=== PATIENT | male | born 1960 | race Caucasian/White ===

== ENCOUNTER 2023-12-10 20:38 | Emergency (ER) | payer OTHER, SELFPAY ==
[2023-12-10 20:48] VITALS: BP 120/75
--- NOTE | 2023-12-10 23:39 | ED.GENMED ---
History of Present Illness
<KAPIL Magallon - Last Filed: 12/11/23 00:39>
General
Chief Complaint: Male Genito-Urinary Symptoms
Source: patient
Exam Limitations: none
Time Seen by Provider: 12/10/23 23:38
Nursing documentation reviewed up to this point in time: agreed with
Travel History
Have you had any contact with someone who has COVID-19?: No
Do you have any symptoms of coronavirus? Fever > 100 degrees, chills, cough, shortness of breath, sore throat, loss of taste or smell, muscle aches, or headache?: No
History of Present Illness
History of Present Illness:
This is a 63 YOM with PMHx of prostatectomy on 12/06/[address] Coats presenting with partially displaced najera catheter, leaking urine and blood. Pt had sx without complication and was d/c 12/08/23 with instructions to shower after every
bowel movement. Pt noted he had first BM after sx on 12/10/23 and subsequently had 5 BM yesterday. He showered after every BM as instructed, but noted that during 5th shower, he had bleeding and leaking urine from the najera. Pt has been wearing small
najera bag on L thigh with straps because he has diff with dexterity changing back and forth with larger bag. Pt also complained of moderate burning pain at the penile head/urethral meatus. Pt did try to reinsert the najera catheter and was partly
successful, but noted sharp pain with this. Pt had bladder US in triage and small volume urine found with no obvious signs of trauma. Pt emptied najera bag while in triage, currently no henrik hematuria in najera bag. PE significant for nonerythematous
penile head/urethral meatus, no henrik blood from urethral meatus. Pt denied fevers, SELLERS, dizziness, vision changes, SOB, chest pain, N/V/C, abd pain, MSK weakness, sensory deficits, pelvic/suprapubic pain.
Past History
<KAPIL Magallon - Last Filed: 12/11/23 00:39>
Past History
ED Past Medical History: Other (kidney stone)
ED Past Surgical History: Other (colooscopy)
Social History
Tobacco: Smoker
Alcohol: None
Drug: Other (h/o drug dealing, on probation, says he never used)
Personal: Single
Living: alone
Review of Systems
<Becky Connor [facility] - Last Filed: 12/11/23 00:39>
Review of Systems
Allergies reviewed?: Yes
All Other Systems: ROS reviewed and negative except as documented in HPI and ROS
Constitutional: Reports no symptoms
EENT: Reports no symptoms
Respiratory: Reports no symptoms
Cardiac: Reports no symptoms
ABD/GI: Reports no symptoms
: Reports bleeding
Musculoskeletal: Reports no symptoms
Skin: Reports no symptoms
Psychiatric: Reports no symptoms
Phy Exam
<Becky Connor [facility] - Last Filed: 12/11/23 00:39>
General Physical Exam
General Presentation: well appearing
General age: appears stated age
General Skin: warm and dry
General Habitus: normal
General Mental: alert
General Hydration: appears well hydrated
ENT Exam
ENT Exam: EOMI and swallowing well
Eye Exam
Eye Exam: PERRL and EOMI
Cardiovascular Exam
Cardiovascular Exam: regular rate/rhythm
Pulmonary Exam
Pulmonary Exam: lungs clear, no respiratory distress, no rales, no crackles, no rhonchi, no stridor, no wheezing and no cough
Gastrointestinal Exam
Gastrointestinal Exam: normal bowel sounds, non tender, soft, no pulsatile mass, non distended and no masses
Rectal Exam: other (Rectal sutures intact, nonerythematous, no purulent drainage. )
Genitourinary Exam Male
Exam Male: circumcised, normal external genitalia and no evidence of trauma
Trauma: urethral meatus (Reported hematuria)
Neurological Exam
Neurological Exam: alert, oriented x3, no motor deficits, no sensory deficits, speech normal and normal gait
Musculoskeletal Exam
Musculoskeletal Exam: neuro vasc intact
Skin Exam
Skin Exam: normal color, warm/dry and tenderness (Rectal area healing incisions from radical prostatectomy)
Psychiatric Exam
Psychiatric Exam: normal mood/affect
Course
<KAPIL Magallon - Last Filed: 12/11/23 00:39>
Vital Signs
Initial and Last Documented VS:
Initial Vital Signs
Temp Pulse Resp BP Pulse Ox
98.9 F 98 18 120/75 99
12/10/23 20:48 12/10/23 20:48 12/10/23 20:48 12/10/23 20:48 12/10/23 20:48
Last Documented Vital Signs
Temp Pulse Resp BP Pulse Ox
98.9 F 98 18 120/75 99
12/10/23 20:48 12/10/23 20:48 12/10/23 20:48 12/10/23 20:48 12/10/23 20:48
<Robert Busby DO - Last Filed: 12/11/23 00:38>
Vital Signs
Initial and Last Documented VS:
Initial Vital Signs
Temp Pulse Resp BP Pulse Ox
98.9 F 98 18 120/75 99
12/10/23 20:48 12/10/23 20:48 12/10/23 20:48 12/10/23 20:48 12/10/23 20:48
Last Documented Vital Signs
Temp Pulse Resp BP Pulse Ox
98.9 F 98 18 120/75 99
12/10/23 20:48 12/10/23 20:48 12/10/23 20:48 12/10/23 20:48 12/10/23 20:48
<Robert Busby, - Last Filed: 12/11/23 00:38>
*Pulse Oximetry
Patient hypoxic: no
*EKG
Interpreted by ED Provider?: NA
*Edge Polisher Interpretation
Rate: Edge Polisher- N/A
*Critical Care Note
Total Time (30-74mins, 75-104mins- exclusive of procedures): Not Applicable
<Robert Busby DO - Last Filed: 12/11/23 00:38>
Patient Management
Discussion with other providers: House Registry Rn (urology Dr. Coats)
Escalation/DeEscalation of care consider admission/obs:
admit not indicated
ED Attending Note
<KAPIL Magallon - Last Filed: 12/11/23 00:39>
-
Portions of this chart may have been created with voice recognition software.� Occasional wrong word or��sound alike� substitutions may have occurred due to the inherent limitations of voice recognition software.
<Robert Busby DO - Last Filed: 12/11/23 00:38>
ED Attending Note
Patient seen and examined by attending physician: Yes
I performed the substantive portion of visit, reviewed & personally made and approve the management plan that is documented in note by myself or EDWIGE.: Yes
I performed a history and physical exam of patient and discussed management with resident, I reviewed resident's note and agree with documented findings and plan of care.: Yes
ED Attending Note:
I have reviewed and agree with history and treatment plan by Becky Connor. My exam revealed Najera catheter intact draining yellow urine, no signs of penile trauma, rectal sutures intact without drainage. Will discharge to follow-up with urology.
Return precautions given.
Discharge Plan
Departure
Prescriptions:
No Action
tamsulosin [Flomax] 0.4 mg Capsule
0.4 mg PO BID
bicalutamide 50 mg Tablet
50 mg PO HS
Interventions
Interventions:
*Risk Screen - Suicide Last Done: 12/10/23 20:48
*General Assessment Last Done: 12/10/23 20:48
*Neglect/Abuse Screening Last Done: 12/10/23 20:48
*ED COVID-19 Vaccine History Last Done: 12/10/23 20:48
[2023-12-11] MEDS: DETROL LA 4 MG PO (00:56)
[2023-12-11 01:12] VITALS: BP 125/70
== END 2023-12-11 01:53 | disposition home or self-care (01) ==
LOC: EMR 20:38
PROVIDERS: EMERGENCY PHYSICIAN Emergency Medicine; FAMILY PHYSICIAN Family Medicine
DX: T83.021A Displacement of indwelling urethral catheter, initial encounter (principal); R31.9 Hematuria, unspecified; Y84.6 Urinary catheterization as the cause of abnormal reaction of the patient, or of later complication, without mention of misadventure at the time of the procedure; C61 Malignant neoplasm of prostate; F17.200 Nicotine dependence, unspecified, uncomplicated; Z98.890 Other specified postprocedural states; Z87.442 Personal history of urinary calculi; Z90.79 Acquired absence of other genital organ(s)
CPT/HCPCS: 99283

== ENCOUNTER 2023-12-29 08:22 | Emergency (ER) | payer OTHER, SELFPAY ==
--- NOTE | 2023-12-29 08:41 | ED.GENMED ---
History of Present Illness
General
Chief Complaint: Extremity Pain (non-traumatic)
Time Seen by Provider: 12/29/23 08:40
Travel History
Have you had any contact with someone who has COVID-19?: No
Do you have any symptoms of coronavirus? Fever > 100 degrees, chills, cough, shortness of breath, sore throat, loss of taste or smell, muscle aches, or headache?: No
History of Present Illness
History of Present Illness:
HPI: Patient presents with non-traumatic lower extremity pain. He has sensation that left foot feels cold. He is a former smoker. He had a radical prostatectomy <1M ago - he does not think this is related to prior surgery. He cannot get
comfortable. He does not have any significant back pain.
EXAM:
GENERAL: Well appearing in mild distress
HEENT: Moist oral mucosa
NEUROLOGIC: Excellent strength all extremities, no coordination deficits
VASCULAR: I am unable to palpate DP or PT pulses bilaterally. I am able to Doppler PT/DP bilaterally but they are very weak. Cap refill on the left foot is 3 seconds, cap refill on the right foot is less than 2 seconds
PSYCHIATRIC: Appropriate mental status, normal insight and judgement
EXTREMITIES: Nontender, no edema, moves all extremities equally, negative straight leg raise
SKIN: No rash, no lesions
ED COURSE:
8:50 AM: I initially evaluated patient
NUMBER AND COMPLEXITY OF PROBLEMS ADDRESSED AT THE ENCOUNTER
� Chronic conditions affecting care: Former smoker, prostate cancer
� Acute Exacerbation and/or Progression of Chronic Illness: This is an acute problem
� Differential Diagnosis includes: Arterial insufficiency, arterial obstruction, ischemic foot, I feel sciatica is much less likely based on physical examination
AMOUNT AND/OR COMPLEXITY OF DATA TO BE REVIEWED AND ANALYZED
� I performed an independent evaluation of and my interpretation is:
EKG:
CT:
X-rays:
Laboratory Studies:
Other: Vascular imaging reviewed with Dr. Zhang
� Review of other/old records: I reviewed old records. The patient was admitted here less than [address] Coats for a 'radical perineal prostatectomy on 12/06/2023). He was discharged on Augmentin and Brown catheter. I
reviewed the PET/CT from 10/20/2023 which showed no musculoskeletal uptake. MRI from July 2023 jested prostate cancer with no MRI evidence of metastatic disease.
� Clinical information was obtained by an independent historian: None needed
� Prescriptions/Medications Considered but not given: Consider narcotic analgesia over the patient states that he is not in pain but rather discomfort; also considered gabapentin but we decided to try steroids first. He will
follow-up with PMD as well.
� Further testing considered but not performed:
RISK OF COMPLICATIONS AND/OR MORBIDITY OR MORTALITY OF PATIENT MANAGEMENT
� Social determinants of health affecting care: Lives at home, drove himself here
� Discussion with other providers: I discussed with vascular at 9 AM and they will come down to evaluate the patient. Dr. Zhang sees no evidence of vascular compromise
� Escalation of care including admission/observation vs risk of discharge considered: Consider narcotic analgesia however the patient states he is not pain but rather discomfort. Dr. Zhang suspects could be
musculoskeletal/'pinched nerve'. Will try short course of steroid medication. The patient states he is not a diabetic.
Past History
Past History
ED Past Medical History: Other (kidney stone)
ED Past Surgical History: Other (colooscopy)
Social History
Tobacco: Smoker
Alcohol: None
Drug: Other (h/o drug dealing, on probation, says he never used)
Personal: Single
Living: alone
Phy Exam
Physical Exam
Physical Exam:
See HPI
Course
Orders/Labs/Results
Orders:
Orders
12/29/23 09:15
US LE Arterial with Art. Brachial Index [US Periph Art LOWER Ext w SEAN] Urgent
Comment:
Reason For Exam: L>R pain w/ decreased pulses on Doppler
12/29/23 11:14
Prednisone [Deltasone] 50 mg PO NOW STA
12/29/23 11:16
Prednisone [Deltasone] 50 mg PO NOW STA
Vital Signs
Initial and Last Documented VS:
Initial Vital Signs
Temp Pulse Resp Pulse Ox
98.0 F 102 16 98
12/29/23 08:24 12/29/23 08:24 12/29/23 08:24 12/29/23 08:24
Last Documented Vital Signs
Temp Pulse Resp BP Pulse Ox
98.0 F 89 20 141/76 98
12/29/23 08:24 12/29/23 10:00 12/29/23 10:00 12/29/23 10:00 12/29/23 10:00
*Critical Care Note
Total Time (30-74mins, 75-104mins- exclusive of procedures): Not Applicable
ED Attending Note
-
Portions of this chart may have been created with voice recognition software.� Occasional wrong word or��sound alike� substitutions may have occurred due to the inherent limitations of voice recognition software.
Discharge Plan
Departure
Patient Disposition: Home (Routine Discharge)
Date of Disposition: 12/29/23
Time of Disposition: 11:15
Patient with high blood pressure during this ER visit?: Yes
Discharge Problem:
Lower extremity pain
Prescriptions:
New
prednisone 50 mg tablet
50 mg PO DAILY Qty: 4 0RF
No Action
tamsulosin [Flomax] 0.4 mg Capsule
0.4 mg PO BID
bicalutamide 50 mg Tablet
50 mg PO HS
tolterodine [Detrol LA] 4 mg capsule,extended release 24hr
4 mg PO DAILY Qty: 10 0RF
Referrals:
Daryn French DO [Family Provider] -
Activity Restrictions/Additional Instructions:
We did have a vascular evaluation today but there is no sign of vascular/arterial blockages. In case this could be a 'pinched nerve', we have placed you on a few days of steroid medication. Return here if worse and follow-up with primary care
doctor.
Interventions
Interventions:
*Risk Screen - Suicide Last Done: 12/29/23 09:30
*General Assessment Last Done: 12/29/23 09:30
*Neglect/Abuse Screening Last Done: 12/29/23 09:30
*ED COVID-19 Vaccine History Last Done: 12/29/23 08:24
ED-Musculoskeletal Assessment Last Done: 12/29/23 09:30
ED-Peripheral Vascular Assessment Last Done: 12/29/23 09:30
ED-Skin Assessment Last Done: 12/29/23 09:30
--- NOTE | 2023-12-29 09:48 | CON.VAS ---
Addendum entered and electronically signed by Roberto Carlos Zhang MD 12/29/23 11:31:
Seen and examined with DILMA Ramirez and Paul. Agree with findings as noted below. 63-year-old male who does have a history of tobacco use but no other vascular risk factors presents with left foot tingling. He notes that almost every night he gets
tingling in his left foot when he sleeping and he wakes up shakes it out and it goes away. Today it did not relief. He denies any pain. No weakness. No history of claudication.
On exam/ He is awake and alert. In no acute distress. Head is normocephalic and atraumatic. Eyes are anicteric. 2+ upper extremity radial pulses palpable bilaterally. Breathing is unlabored. Abdomen is soft. Lower extremity with 2+ femoral,
popliteal, PT pulses palpable easily bilaterally. 1+ DP pulses palpable bilaterally. Feet are both pink and warm and well-perfused. No rubor, no ulcerations. No ischemic changes.
Noninvasive studies reviewed. Normal lower extremity duplexes. Normal ABIs and TBI's bilaterally.
Plan/ No evidence of any significant peripheral arterial disease. No acute limb ischemia. Appears to have more neurologic based symptoms. Discussed with patient and discussed with ER physician. Will sign off. Please call with questions. Note,
based on patient age/risk factors (history of tobacco use), would normally recommend one-time screening ultrasound to rule out abdominal aortic aneurysm. However I reviewed CT scans he has had over the last year or 2 that demonstrate no evidence of
thoracic or abdominal aortic aneurysms. No need for further imaging surveillance at this point.
Original Note:
Consultation
Consultation Request
Date/Time Consultation Performed: 12/29/23 1330
Requesting Provider: ED physician
Performing Provider: Viki Ramirez RUG DYER-C for Roberto Carlos Zhang MD
Reason for Consultation: Left lower extremity foot paresthesia
Medical History
-
Chief Complaint: Left lower extremity foot paresthesia and coolness
History of Present Illness:
This is a 63-year-old male with significant past medical history of prostate cancer, back pain, impaired fasting glucose, and former smoker (quit roughly 10 years ago with a 40-year smoking history of 1 pack/day) he presents to the ED reporting left
lower extremity coolness and paresthesia that has been ongoing for the past 2 months with an acute worsening roughly 6 hours ago. Patient denies history of PAD, CAD, chest pain, arrhythmia, previous and vascular surgery history. Does endorse
recent prostatectomy roughly 3 weeks ago. He also endorses chronic back pain but he managed with [id number] medications and has never required surgical intervention. He endorses that roughly 2 months ago he began experiencing left lower
extremity mostly isolated to foot paresthesia described as juxr-mra-[id number], often occurring at night, however he can usually move or shake his leg and stop the paresthesia. Roughly 6 hours ago he noted an increased sensation in the
'ydvv-[id number]'and self-reported sensation of coolness at bilateral feet prompting him to seek evaluation. He denies left lower extremity leg or foot pain, but is sensitive to palpation. He denies decrease in motor or sensation of left lower
extremity. He denies current back pain and does note that previous history of back pain did not include this current sensation of paresthesia. Denies recent fever, chills, and fall. He denies claudication or rest pain. He does note the
paresthesia sensation often occurs at night but denies finding resolution in discomfort if he dangles his leg on the side of the bed. He actually notes that dangling his legs will slightly worsen the paresthesia.
Past Medical History
Past Medical History: Other (Prostate cancer, TB, impaired fasting glucose)
Past Surgical History: Urological ( Radical perineal prostatectomy 12/06/23)
Social History
Tobacco: Former Smoker
Allergies / Home Medications
Allergy/AdvReac Type Severity Reaction Status Date / Time
aspirin Allergy 'stomach Verified 12/29/23 08:28
bleeds'
Medication Instructions Recorded Confirmed Type
tamsulosin 0.4 mg capsule (Flomax) 0.4 mg PO BID Urinary Issue 09/28/23 12/06/23 History
bicalutamide 50 mg tablet 50 mg PO HS Cancer 11/30/23 12/06/23 History
tolterodine 4 mg capsule,extended 4 mg PO DAILY #10 caps 12/11/23 Rx
release 24 hr (Detrol LA)
Review of Systems
-
History Source: Patient
Constitutional: Reports No Symptoms
EENT: Reports No Symptoms
Respiratory: Reports No Symptoms
Cardiac: Reports No Symptoms
Vascular: Reports Numbness and Tingling; Denies Leg Pain / Claudication
Abdomen/GI: Reports No Symptoms
: Reports No Symptoms
Musculoskeletal: Reports No Symptoms
Skin: Reports Other (Bilateral feet coolness)
Neurological: Reports No Symptoms
Endocrine: Reports No Symptoms
Physical Exam
Vital Signs
Temp Pulse Resp Pulse Ox
98.0 F 102 16 98
12/29/23 08:24 12/29/23 08:24 12/29/23 08:24 12/29/23 08:24
Physical Exam
General: No Apparent Distress and Comfortable
HEENT: Normocephalic, Anicteric and Atraumatic
Respiratory: Non Labored Respirations
Cardiac: Negative JVD
GI: Soft, Non Tender and Non Distended
Musculoskeletal: No Edema
Skin: Warm and Other (Bilateral lower extremity feet cap refill less than 4 seconds)
Neuro: AO x 3
Pulses: Bilateral Femoral: +2, Bilateral Dorsalis Pedis: Doppler and Bilateral Posterior Tibial: Doppler
Assessment / Plan
-
Assessment: 63-year-old male presents with paresthesia of left lower extremity.
Plan:
Given history of smoking and nonpalpable pulses suspect some degree of peripheral artery disease; however low concern that this is an acute arterial occlusion or ischemia as capillary refill is within normal limits, foot on exam is warm, and
Doppler signals of bilateral DP/PT are present. Suspect paresthesia likely from a musculoskeletal source. However, would start with noninvasive arterial ultrasound with SEAN/TBI imaging for assessment of peripheral artery disease given pulses are
nonpalpable.
Reviewed HPI, physical exam, and review of systems with attending Dr. Roberto Carlos Zhang who agrees with above plan.
Plan relayed to ED physician
I performed this shared service with the attending. I evaluated the patient [id number] and have entered clinical documentation as shown in the encounter note. I performed the following component(s):�history and physical exam. Note that medical
decision making is not final until attested by vascular attending.
[2023-12-29 10:00] VITALS: BP 141/76
[2023-12-29] MEDS: DELTASONE 50 MG PO (11:31)
[2023-12-29 11:48] VITALS: BP 138/76
== END 2023-12-29 11:50 | disposition home or self-care (01) ==
LOC: EMR 08:22
PROVIDERS: EMERGENCY PHYSICIAN Emergency Medicine; FAMILY PHYSICIAN Family Medicine; OTHER PHYSICIAN Surgery Vascular Surgery
DX: M79.605 Pain in left leg (principal); M54.50 Low back pain, unspecified; R03.0 Elevated blood-pressure reading, without diagnosis of hypertension; Z85.46 Personal history of malignant neoplasm of prostate; Z87.891 Personal history of nicotine dependence
CPT/HCPCS: 99284; 93922; 93925

== ENCOUNTER → 2024-02-06 08:13 | Outpatient (REF) | payer MEDICARE, OTHER, SELFPAY | LOC: RAD 08:13 | PROVIDERS: ATTENDING PHYSICIAN Internal Medicine Critical Care Medicine; FAMILY PHYSICIAN Family Medicine | DX: R91.1 Solitary pulmonary nodule (principal) | CPT/HCPCS: 71250 ==

== ENCOUNTER → 2024-05-02 07:09 | Outpatient (REF) | payer OTHER, SELFPAY | LOC: HWRAD 07:09 | PROVIDERS: ATTENDING PHYSICIAN Surgery; FAMILY PHYSICIAN Family Medicine | DX: N43.40 Spermatocele of epididymis, unspecified (principal) | CPT/HCPCS: 76870; 93976 ==

== ENCOUNTER → 2024-06-05 06:58 | Outpatient (REF) | payer OTHER, SELFPAY | LOC: MRI 3T 06:58 | PROVIDERS: ATTENDING PHYSICIAN Orthopaedic Surgery; FAMILY PHYSICIAN Family Medicine | DX: Z85.46 Personal history of malignant neoplasm of prostate (principal); M54.16 Radiculopathy, lumbar region | CPT/HCPCS: 72148 ==

== ENCOUNTER → 2024-06-06 07:51 | Outpatient (REF) | payer OTHER, SELFPAY | LOC: RAD 07:51 | PROVIDERS: ATTENDING PHYSICIAN Orthopaedic Surgery; FAMILY PHYSICIAN Family Medicine | DX: M54.16 Radiculopathy, lumbar region (principal) | CPT/HCPCS: 78315; A9503 ==

== ENCOUNTER 2024-06-08 06:17 | Day surgery (SDC) | payer OTHER, SELFPAY ==
[2024-06-05 10:32] VITALS: BMI 30.2
[2024-06-05 10:36] LABS: Hematocrit 45.7 % (39.0-52.0); Hemoglobin 15.9 g/dL (13.0-18.0); Mean Corp Hgb Conc. 34.8 g/dL (33.0-37.0); Mean Corpuscular Hgb 30.5 pg (27.0-31.0); Mean Corpuscular Volume 87.7 fL (80.0-94.0); Mean Platelet Volume 10.3 fL (7.4-10.4); Platelet Count 241 10^3/uL (130-400); Red Blood Cell Count 5.21 10^6/uL (4.70-6.10); Red Cell Dist. Width 12.6 % (11.5-14.5); White Blood Cell Count 7.2 10^3/uL (4.8-10.8)
[2024-06-05 10:37] LABS: Urine Albumin Negative (Neg - Trace); Urine Bilirubin Negative (Negative); Urine Character Very Cloudy (Clear); Urine Color Amber; Urine Glucose Negative (Negative); Urine Ketone Negative (Negative); Urine Leukocyte Negative (Negative); Urine Nitrite Negative (Negative); Urine Occult Blood Negative (Negative); Urine Urobilinogen Negative (Neg - 1+)
[2024-06-05 10:47] LABS: INR 1.02; PT 13.4 Sec (11.4-14.6)
[2024-06-05 10:48] LABS: APTT 28.7 Sec (23.4-35.0)
[2024-06-05 11:01] LABS: Blood Urea Nitrogen 23 mg/dl (9-20); Calcium 10.8 mg/dl (8.4-10.2); Carbon Dioxide 22 mmol/L (22-30); Chloride 104 mmol/L (98-107); Estimated Creatinine Clearance 92 ml/min; Glucose 120 mg/dl (70-99); Potassium 4.5 mmol/L (3.5-5.1); Sodium 139 mmol/L (135-145); eGFR > 60.00
[2024-06-08] VITALS (8 sets, daily range): BP systolic 123–147; BP diastolic 80–89; BMI 30.2
[2024-06-08] MEDS: NORMOSOL-R/PLASMALYTE-A 1000 IV (13:10)
== END 2024-06-08 17:00 | disposition home or self-care (01) ==
LOC: SDS 06:17
PROVIDERS: ATTENDING PHYSICIAN Surgery; FAMILY PHYSICIAN Family Medicine
DX: N43.41 Spermatocele of epididymis, single (principal)
CPT/HCPCS: 54840; 36415; 80048; 81003; 85027; 85610; 85730; 93005

== ENCOUNTER → 2024-08-10 12:08 | Outpatient (REF) | payer OTHER, MEDICARE, SELFPAY | LOC: PET 12:08 | PROVIDERS: ATTENDING PHYSICIAN Radiology Radiation Oncology | DX: C61 Malignant neoplasm of prostate (principal) | CPT/HCPCS: 78815 ==

== ENCOUNTER → 2024-08-14 06:28 | Day surgery (SDC) | payer OTHER, SELFPAY | LOC: GI 06:28 | PROVIDERS: ATTENDING PHYSICIAN Surgery | DX: Z12.11 Encounter for screening for malignant neoplasm of colon (principal); D12.3 Benign neoplasm of transverse colon; K63.5 Polyp of colon; K57.30 Diverticulosis of large intestine without perforation or abscess without bleeding; Z86.010 Personal history of colon polyps; C61 Malignant neoplasm of prostate | CPT/HCPCS: 45385; 45380; 88305 ==

== ENCOUNTER → 2024-11-22 09:50 | Outpatient (REF) | payer OTHER, SELFPAY | LOC: RAD 09:50 | PROVIDERS: ATTENDING PHYSICIAN Family Medicine | DX: M25.511 Pain in right shoulder (principal) | CPT/HCPCS: 73030 ==

== ENCOUNTER → 2025-02-12 07:31 | Outpatient (REF) | payer OTHER, SELFPAY | LOC: HWRAD 07:31 | PROVIDERS: ATTENDING PHYSICIAN Internal Medicine Critical Care Medicine; FAMILY PHYSICIAN Family Medicine | DX: Z87.891 Personal history of nicotine dependence (principal) | CPT/HCPCS: 71271 ==

== ENCOUNTER → 2025-03-11 08:22 | Outpatient (REF) | payer OTHER, SELFPAY | LOC: HWRCS 08:22 | PROVIDERS: ATTENDING PHYSICIAN Internal Medicine Cardiovascular Disease; FAMILY PHYSICIAN Family Medicine | DX: R06.09 Other forms of dyspnea (principal); I44.7 Left bundle-branch block, unspecified | CPT/HCPCS: 78452; 93017; A9500; J2785 ==

== ENCOUNTER → 2025-03-22 07:04 | Outpatient (REF) | payer OTHER, SELFPAY | LOC: RCS 07:04 | PROVIDERS: ATTENDING PHYSICIAN Internal Medicine Cardiovascular Disease; FAMILY PHYSICIAN Family Medicine | DX: R94.39 Abnormal result of other cardiovascular function study (principal); I44.7 Left bundle-branch block, unspecified | CPT/HCPCS: 93306 ==

== ENCOUNTER 2025-03-26 17:53 | Emergency (ER) | payer OTHER, SELFPAY ==
[2025-03-26 18:00] VITALS: BP 137/33
[2025-03-26 18:26] LABS: % Basophils 0.5 % (0-2); % Eosinophils 2.6 % (0-6); % Immature Granulocytes 0.3 % (0-0.5); % Lymphocytes 11.1 % (20.5-51.1); % Monocytes 7.2 % (1.7-9.3); % Neutrophils 78.3 % (42.2-75.2); Absolute Eosinophils 0.2 10^3/uL (0-0.7); Absolute Lymphocytes 0.7 10^3/uL (1.2-3.4); Absolute Monocytes 0.4 10^3/uL (0.1-0.6); Absolute Neutrophils 4.8 10^3/uL (1.4-6.5); Hematocrit 38.7 % (39.0-52.0); Mean Corp Hgb Conc. 33.6 g/dL (33.0-37.0); Mean Corpuscular Hgb 29.4 pg (27.0-31.0); Mean Corpuscular Volume 87.6 fL (80.0-94.0); Mean Platelet Volume 9.4 fL (7.4-10.4); Nucleated Red Blood Cells % 0 % (-); Platelet Count 327 10^3/uL (130-400); Red Blood Cell Count 4.42 10^6/uL (4.70-6.10); Red Cell Dist. Width 12.7 % (11.5-14.5); White Blood Cell Count 6.1 10^3/uL (4.8-10.8)
[2025-03-26 18:30] LABS: Lactic Acid 1.1 mmol/L (0.7-2.0)
[2025-03-26 18:38] LABS: ALT (SGPT) 21 U/L (0-50); AST (SGOT) 23 U/L (17-59); Albumin 4.3 g/dl (3.5-5.0); Alkaline Phosphatase 134 U/L (38-126); Blood Urea Nitrogen 15 mg/dl (9-20); Calcium 10.3 mg/dl (8.4-10.2); Carbon Dioxide 24 mmol/L (22-30); Chloride 109 mmol/L (98-107); Glucose 164 mg/dl (70-99); Potassium 4.2 mmol/L (3.5-5.1); Sodium 139 mmol/L (135-145); Total Bilirubin 1.1 mg/dl (0.2-1.3); Total Protein 7.4 g/dl (6.3-8.2); eGFR > 60.00
[2025-03-26 19:09] LABS: COVID-19 Antigen Negative (Negative)
[2025-03-26 20:19] VITALS: BP 133/77
--- NOTE | 2025-03-26 21:41 | ED.GENMED ---
History of Present Illness
General
Chief Complaint: Breathing Problem
Source: patient
Exam Limitations: none
Time Seen by Provider: 03/26/25 21:35
Nursing documentation reviewed up to this point in time: agreed with
History of Present Illness
History of Present Illness:
65-year-old male presents emergency department due to fever cough headache shortness of breath ongoing for 4 days. No aggravating or alleviating factors.
Past History
Past History
ED Past Medical History: Other (kidney stone) and Other (GI bleed)
ED Past Surgical History: Other (colooscopy)
Social History
Tobacco: Former smoker
Alcohol: None
Drug: Other (h/o drug dealing, on probation, says he never used)
Personal: Single
Living: alone
Review of Systems
Review of Systems
Allergies reviewed?: Yes
All Other Systems: Not applicable
Constitutional: Reports fever
EENT: Reports runny nose
Respiratory: Reports cough and trouble breathing
Cardiac: Reports no symptoms
ABD/GI: Reports no symptoms
: Reports no symptoms
Musculoskeletal: Reports no symptoms
Skin: Reports no symptoms
Neurological: Reports headache
Endocrine: Reports no symptoms
Hematologic/Lymphatic: Reports no symptoms
Psychiatric: Reports no symptoms
Phy Exam
Physical Exam
Physical Exam:
Physical Exam
General: no apparent distress, not acutely ill
Neck: supple. no meningeal signs. normal posterior pharynx
Heart: s1/s2 regular rate and rhythm, no murmur. equal radial
pulses.
HEENT: Pupils equal round reactive to light, EOMI
Lungs: no acute respiratory distress. Wheezing bilaterally
Abdomen: normal bowel sounds. not tender. no CVAT
Neuro: alert and oriented. no focal neurological deficits cranial nerves II through XII intact
Skin: no rash
Psychiatric: well kept. interactive and cooperative
Extremities: no edema. no calf tenderness. negative homans. good distal pulses
Scores
Heart Failure Risk
Heart Failure Risk Score: Not Applicable
Course
Orders/Labs/Results
Orders:
Orders
03/26/25 18:09
COVID-19 Antigen Urgent
Source: Nasal Swab
Complete Blood Count/With Diff Urgent
Comprehensive Metabolic Panel Urgent
Lactic Acid Urgent
Blood Culture Urgent
MARLINE Source: Blood/Venous
Specimen Description:
Influenza A+B Rapid Molecular Urgent
MARLINE Source: Nasal Swab
Specimen Description:
03/26/25 18:27
Chest [CR Chest - 2 Views ] Urgent
Comment:
Reason For Exam: sob, cough
03/26/25 21:40
Ipratropium/Albuterol Sulfate [Duoneb] 3 ml INH R NOW STA
Abnormal Lab Results
03/26/25
18:09
RBC 4.42 L 10^6/uL
(4.70-6.10)
Hct 38.7 L %
(39.0-52.0)
Absolute Lymphs (auto) 0.7 L 10^3/uL
(1.2-3.4)
Neutrophils % 78.3 H %
(42.2-75.2)
Lymphocytes % 11.1 L %
(20.5-51.1)
Chloride 109 H mmol/L
(98-107)
Glucose 164 H mg/dl
(70-99)
Calcium 10.3 H mg/dl
(8.4-10.2)
Alkaline Phosphatase 134 H U/L
(38-126)
03/26/25 18:09
03/26/25 18:09
Vital Signs
Initial and Last Documented VS:
Initial Vital Signs
Temp Pulse Resp BP Pulse Ox
101.2 F H 108 22 137/33 94
03/26/25 18:00 03/26/25 18:00 03/26/25 18:00 03/26/25 18:00 03/26/25 18:00
Last Documented Vital Signs
Temp Pulse Resp BP Pulse Ox
98.6 F 95 20 107/80 94
03/26/25 20:19 03/26/25 22:44 03/26/25 22:44 03/26/25 22:00 03/26/25 22:15
MDM/Problems Addressed
Differential Diagnosis Includes:
Pneumonia, bronchitis
MDM/Problems Addressed:
Six 5-year-old male with bronchitis. No signs of pneumonia on chest x-ray. Treat with albuterol, prednisone. Follow-up with primary care.
*Radiology
Radiology exam reviewed: radiology read reviewed (Chest x-ray no acute findings)
*Pulse Oximetry
Patient hypoxic: no
*Critical Care Note
Total Time (30-74mins, 75-104mins- exclusive of procedures): Not Applicable
Data Reviewed
Prescriptions/Medications Considered But Not Given:
Antibiotics not indicated
Further Testing Considered But Not Given:
CT chest not indicated
Patient Management
Social determinants of health affecting care: Living situation and Strong social support
Escalation/DeEscalation of care consider admission/obs:
admit not indicated
ED Attending Note
-
Portions of this chart may have been created with voice recognition software.� Occasional wrong word or��sound alike� substitutions may have occurred due to the inherent limitations of voice recognition software.
Discharge Plan
Departure
Patient Disposition: Home (Routine Discharge)
Date of Disposition: 03/26/25
Time of Disposition: 22:47
Patient with high blood pressure during this ER visit?: Yes
Condition: Good
Discharge Problem:
Acute bronchitis
Instructions: Acute Bronchitis, Adult (DC), BLOOD PRESSURE
Prescriptions:
New
albuterol sulfate 90 mcg/actuation HFA aerosol inhaler
2 puff inhalation QID PRN (Reason: shortness of breath or wheezing) Qty: 8.5 0RF
prednisone 50 mg tablet
50 mg PO DAILY Qty: 5 0RF
Interventions
Interventions:
*Risk Screen - Suicide Last Done: 03/26/25 18:02
*General Assessment Last Done: 03/26/25 21:54
*Neglect/Abuse Screening Last Done: 03/26/25 18:02
*ED- Fall Risk Assessment Last Done: 03/26/25 21:54
*ED COVID-19 Vaccine History Last Done: 03/26/25 21:54
ED- Cardiac Assessment Last Done: 03/26/25 21:54
ED- Pulmonary Assessment Last Done: 03/26/25 21:54
Discharge Date and Time
Print Language: PERUVIAN
[2025-03-26] MEDS: DUONEB 3 ML INH (21:48)
[2025-03-26 21:52] VITALS: BP 123/88
[2025-03-26 22:00] VITALS: BP 107/80
== END 2025-03-26 22:53 | disposition home or self-care (01) ==
LOC: EMR 17:53
PROVIDERS: Student in an Organized Health Care Education/Training Program; EMERGENCY PHYSICIAN Emergency Medicine; FAMILY PHYSICIAN Family Medicine
DX: J20.9 Acute bronchitis, unspecified (principal); Z87.442 Personal history of urinary calculi; Z87.891 Personal history of nicotine dependence
CPT/HCPCS: 99283; 94640; 71046; 80053; 83605; 85025; 87040; 87502; 87811

== ENCOUNTER → 2025-04-15 10:14 | Outpatient (REF) | payer OTHER, SELFPAY | LOC: RAD 10:14 | PROVIDERS: ATTENDING PHYSICIAN Internal Medicine Cardiovascular Disease; FAMILY PHYSICIAN Family Medicine | DX: R94.39 Abnormal result of other cardiovascular function study (principal); I44.7 Left bundle-branch block, unspecified | CPT/HCPCS: 75574; Q9967 ==